=== PATIENT | male | born 1985 | race Caucasian/White ===

== ENCOUNTER 2019-12-05 02:12 | Emergency (ER) | payer OTHER ==
--- NOTE | 2019-12-05 03:05 | ER Document Report ---
ED General - HPI Associated symptoms: Other - See HPI Exacerbated by: Other - Personal stressors Relieved by: Denies <ZOHRA HEBERT IV - Last Filed: 12/05/19 05:25> <MAITE MAX - Last Filed: 12/05/19 14:43> <LILIBETHMARGIE Cayden - Last Filed: 12/05/19 15:00> - General Chief Complaint: Psych Problem Stated Complaint: IVC Time Seen by Provider: 12/05/19 02:22 Primary Care Provider: [facility] [Outside] - Follow up as needed [facility] [Outside] - Follow up as needed [facility] - Follow up as needed - HPI Context: This is a 34-year-old male with a history of depression and anxiety who presents to the emergency department via rescue for evaluation of suicidal ideation. Patient states that he has had thoughts of suicidal ideation for the past 2 days. Patient states he does not have a plan in mind and he does not have access to firearms. Patient states that he is under a lot of emotional stress right now; patient is going through divorce, has been unable to see his children and is technically homeless at this time. Patient states he is living out of a 9 x 14 and closed [facility] behind trailer. Patient states he is on the following medications: Bupropion 150 mg p.o. every morning, vitamin D3 (unknown quantity) every morning, Zoloft 100 mg nightly and doxepin 10 mg nightly. Patient states that he has been prescribed melatonin 5 mg before but does not take it because it gives him nightmares. Patient is also complaining of a lot of anxiety lately and a tendency towards anxiety attacks. Patient states he had to pull off the road the other day because his legs and hands were trembling so much. Patient states he did not call EMS and does not know who did. Patient denies fever, chills, shortness of breath, cough, chest pain, loss of sense of taste or loss of sense of smell, prior COVID 19 infection, known exposure to COVID positive persons or persons under investigation for COVID. Patient denies visual or auditory hallucinations. (ZOHRA HEBERT IV) Past Medical History - General Information source: Patient - Social History Smoking Status: Never Smoker Chew tobacco use (# tins/day): No Frequency of alcohol use: None Drug Abuse: Marijuana Lives with: Other - Homeless Family History: Reviewed & Not Pertinent Patient has suicidal ideation: No Patient has homicidal ideation: No Psychiatric Medical History: Reports: Hx Anxiety, Hx Dementia <ZOHRA HEBERT IV - Last Filed: 12/05/19 05:25> Review of Systems - Review of Systems Constitutional: No symptoms reported EENT: No symptoms reported Cardiovascular: No symptoms reported Respiratory: No symptoms reported Gastrointestinal: No symptoms reported Genitourinary: No symptoms reported Male Genitourinary: No symptoms reported Musculoskeletal: No symptoms reported Skin: No symptoms reported Hematologic/Lymphatic: No symptoms reported Neurological/Psychological: Depression, Anxiety, Suicidal ideation -: Yes All other systems reviewed and negative <ZOHRA HEBERT IV - Last Filed: 12/05/19 05:25> Physical Exam <ZOHRA HEBERT IV - Last Filed: 12/05/19 05:25> - Vital signs Vitals: Temp Pulse Resp BP Pulse Ox 97.9 F 75 14 121/73 99 12/05/19 02:13 12/05/19 02:13 12/05/19 02:13 12/05/19 02:13 12/05/19 02:13 - Notes Notes: CONSTITUTIONAL [Vital signs reviewed, Patient appears comfortable, Alert and oriented X 3, Normal stature.] HEAD [Atraumatic, Normocephalic.] EYES [Eyes are normal to inspection, No discharge from eyes, Extraocular muscles intact, Sclera are normal, Conjunctiva are normal.] ENT No rhinorrhea, Mouth normal to inspection.] NECK [Normal ROM, No jugular venous distention, No meningeal signs] RESPIRATORY CHEST [Chest is nontender, Breath sounds normal, No respiratory distress.] CARDIOVASCULAR [RRR, No murmurs, Normal S1 S2, No rub, No gallop.] ABDOMEN [Abdomen is nontender, No pulsatile masses, No other masses, Bowel sounds normal, No distension, No peritoneal signs, No hernias.] BACK [There is no CVA Tenderness, There is no tenderness to palpation, Normal inspection.] UPPER EXTREMITY [Inspection normal, No cyanosis, No clubbing, No edema, 2+ radial pulses.] LOWER EXTREMITY [Inspection normal, No cyanosis, No clubbing, No edema, No calf tenderness, 2+ femoral pulses.] NEURO [No focal motor deficits, No focal sensory deficits, Speech normal.] SKIN [Skin is warm, Skin is dry, Skin is normal color.] PSYCHIATRIC [Depressed affect, normal speech. ] (ZOHRA HEBERT IV) Course - Laboratory Result Diagrams: 12/05/19 02:21 12/05/19 02:21 <ZOHRA HEBERT IV - Last Filed: 12/05/19 05:25> - Laboratory Result Diagrams: 12/05/19 02:21 12/05/19 02:21 <MAITE MAX - Last Filed: 12/05/19 14:43> - Laboratory Result Diagrams: 12/05/19 02:21 12/05/19 02:21 <MARGIE MCELROY - Last Filed: 12/05/19 15:00> - Re-evaluation Re-evalutation: 12/05/19 05:25 Patient is medically cleared at this time (ZOHRA HEBERT IV) - Vital Signs Vital signs: Temp Pulse Resp BP Pulse Ox 98.0 F 65 14 110/59 L 100 12/05/19 11:11 12/05/19 11:11 12/05/19 05:53 12/05/19 11:11 12/05/19 11:11 - Laboratory Laboratory results interpreted by me: 12/05/19 12/05/19 02:21 03:47 BUN 26 H Creatinine 1.28 H Urine Urobilinogen 2.0 H Salicylates < 1.0 L Acetaminophen < 10 L - EKG Interpretation by Me Additional EKG results interpreted by me: 12/05/19 03:45 EKG obtained on 12/05/2019 at 0218 hrs. was interpreted by this MD. Findings: Normal sinus rhythm, rate 72, normal axis, UT intervals appears within normal limits, P waves proceed QRS complexes, QRS complex appears narrow, QTC is 416, there are no obvious patterns of ST segment elevation, depression or reciprocal changes seen to suggest acute myocardial ischemia or infarction. Impression: Normal sinus rhythm with nonspecific ST segments (ZOHRA HEBERT IV) Discharge <ZOHRA HEBERT IV - Last Filed: 12/05/19 05:25> <MAITE MAX - Last Filed: 12/05/19 14:43> <MARGIE MCELROY - Last Filed: 12/05/19 15:00> - Discharge Clinical Impression: Suicidal ideation, Marijuana use, Marital conflict involving divorce, Depression, Anxiety Condition: Stable Disposition: HOME, SELF-CARE Additional Instructions: You have been evaluated by both medical and behavioral health teams for suicidal ideation, depression, anxiety, cannabis use, and marital conflict involving divorce. You have been deemed appropriate for discharge. While in the emergency department you received the following services/or had access to: Medical screening and assessment, nursing services, dietary services, pharmacological services, one-on-one counseling and/or psychotherapy, environmental services, and continuous observation by a patient safety compliance specialist. You should continue your home medications of Wellbutrin, Zoloft, Doxepin, Melatonin and Vitamin D3. These are the medications your [facility] prescribed you. Just continue whatever medications they are prescribing. You are recommended to refrain from cannabis use as it can increase depression and anxiety, as well as interfere with medication effectiveness. DEPRESSION: (situational factors such as marital conflict can increase this and other mental health symptoms) Your evaluation reveals that you have mental depression. While symptoms may be vague, they often include disturbance of sleep, fatigue, loss of appetite, and general loss of interest in life. While depression may be a side effect of drugs, or a reaction to a major change in your life, many cases have no known cause. If depression is acute, and related to a major loss in your life, you can expect it to clear completely with time. If you have been depressed a long time, are prone to repeated bouts of depression or low mood, or have been thinking of suicide, get help. Depression can be treated with anti-depressant medication and counselling. Long-term depression will often take a few weeks to clear, even with appropriate medication. Follow-up care is important. Anxiety: (situational factors such as marital conflict can increase this and other mental health symptoms) The physician feels that some of your health problems are being caused by anxiety. Anxiety affects your health in many ways. Anxiety alone can cause palpitations, sweats, chest pains, abdominal pains, shortness of breath, and headaches. It contributes to ulcer disease, high blood pressure, irritable bowel syndrome, and has been shown to cause flare-ups of many other diseases. Anxiety is not a simple disorder to treat. If the anxiety is due to recent life stresses, you may simply need time to "work through" the changes. If the anxiety is due to an underlying unhappiness with yourself or due to psychiatric disturbance, professional help will be needed. Your physician can refer you for further help if needed. Anti-anxiety medication is occasionally given if the stress is acute or if you are having trouble sleeping. Chronic or frequent use of these medications is not a good idea because the body becomes reliant on it, preventing you from dealing with life's normal stresses. SUICIDAL IDEATION: Suicidal ideation is a common medical term for thoughts about suicide, which may be as detailed as a formulated plan, without the suicidal act itself. Although most people who undergo suicidal ideation do not commit suicide, some go on to make suicide attempts. The range of suicidal ideation varies greatly from fleeting to detailed planning, role playing, and unsuccessful attempts. While thoughts about suicide are common, most people do not carry out serious actions to commit suicide. Based upon your evaluation and discussion with you, we do not believe you are currently at risk to act upon your thoughts of suicide. You have agreed to return to the Emergency Department, at any time, if you feel inclined to act upon your suicidal thoughts. Please follow-up with your primary care regarding your creatinine which is a little elevated, this may be due to dehydration or drug use. Please follow-up within the next 24 to 48 hours DISCHARGE: You are encouraged to allow your parents who just flew in from [place] to be a natural support. They stated the plan is for you to go back to [place] with them and that is felt to be a good option right now since you denied any support system locally. You should continue with [facility] for your mental health needs, whether that is in [place] where you are currently linked or in [place]. You have been provided both local mobile crisis numbers and the [facility] Crisis Hotline Number for immediate support while still local. If you experience worsening or a significant change in your symptoms notify your physician immediately, utilize crisis numbers or return to the Emergency Department at any time for re-evaluation. Referrals: [facility] [Outside] - Follow up as needed [facility] [Outside] - [facility] up as needed [facility] - Follow up as needed MARQUISE ALVAREZ, [NO LOCAL MD] - Follow up as needed
[2019-12-05 03:23] LABS: ABSOLUTE BASOPHILS # (AUTO) 0.1 10^3/uL (0.0-0.2); ABSOLUTE EOSINOPHILS # (AUTO) 0.2 10^3/uL (0.0-0.6); ABSOLUTE LYMPHOCYTES (AUTO) 1.8 10^3/uL (0.5-4.7); ABSOLUTE MONOCYTES (AUTO) 0.5 10^3/uL (0.1-1.4); ABSOLUTE NEUT (AUTO) 3.7 10^3/uL (1.7-8.2); ALBUMIN 4.9 g/dL (3.5-5.0); ALKALINE PHOSPHATASE 83 U/L (38-126); ANION GAP 12 (5-19); ASPARTATE AMINO TRANSFERASE 23 U/L (17-59); BILIRUBIN,DIRECT 0.3 mg/dL (0.0-0.4); BILIRUBIN,TOTAL 0.5 mg/dL (0.2-1.3); BLOOD UREA NITROGEN 26 mg/dL (7-20); CALCIUM 9.8 mg/dL (8.4-10.2); CARBON DIOXIDE 28 mmol/L (22-30); CHLORIDE 103 mmol/L (98-107); EOSINOPHILS % (AUTO) 2.8 % (0-6); GLUCOSE 99 mg/dL (75-110); HEMATOCRIT 46.6 % (37.9-51.0); HEMOGLOBIN 16.6 g/dL (13.5-17.0); LYMPHOCYTES % (AUTO) 28.5 % (13-45); MEAN CORPUSCULAR HEMOGLOBIN 30.6 pg (27.0-33.4); MEAN CORPUSCULAR HGB CONC 35.6 g/dL (32.0-36.0); MEAN CORPUSCULAR VOLUME 86 fl (80-97); MONOCYTES % (AUTO) 7.8 % (3-13); PLATELET COUNT 232 10^3/uL (150-450); RED BLOOD COUNT 5.42 10^6/uL (4.35-5.55); RED CELL DISTRIBUTION WIDTH 12.9 % (11.5-14.0); SEGMENTED NEUTROPHILS % (AUTO) 59.9 % (42-78); TOTAL CELLS COUNTED % (AUTO) 100 %; TOTAL PROTEIN 7.5 g/dL (6.3-8.2); WHITE BLOOD COUNT 6.2 10^3/uL (4.0-10.5)
[2019-12-05 03:42] LABS: ACETAMINOPHEN < 10 ug/mL (10-30); ALCOHOL < 10 mg/dL (NONE DETECTED); SALICYLATE < 1.0 mg/dL (2.0-20.0)
[2019-12-05 04:16] LABS: APPEARANCE,URINE CLEAR; BILIRUBIN,URINE NEGATIVE (NEGATIVE); COLOR,URINE YELLOW; GLUCOSE, URINE NEGATIVE (NEGATIVE); KETONES,URINE NEGATIVE (NEGATIVE); LEUKOCYTE ESTERASE,URINE NEGATIVE (NEGATIVE); NITRITE,URINE NEGATIVE (NEGATIVE); PROTEIN,URINE NEGATIVE (NEGATIVE); URINE SPECIFIC GRAVITY 1.025
[2019-12-05 04:30] LABS: URINE AMPHETAMINES SCREEN NEGATIVE; URINE BARBITURATES SCREEN NEGATIVE; URINE BENZODIAZEPINES SCREEN NEGATIVE; URINE COCAINE SCREEN NEGATIVE; URINE METHADONE SCREEN NEGATIVE; URINE PHENCYCLIDINE SCREEN NEGATIVE
[2019-12-05 04:32] LABS: URINE MARIJUANA (THC) SCREEN UNCONFIRMED POSITIVE
[2019-12-05] MEDS ORDERED: CHOLECALCIFEROL (D3) 400 UNIT TABLET PO SCH (08:00)
[2019-12-05] MEDS ORDERED: BUPROPION HCL 75 MG TABLET PO SCH (08:00)
--- NOTE | 2019-12-05 10:08 | EKG REPORT ---
SEVERITY:- NORMAL ECG - SINUS RHYTHM ST ELEV, PROBABLE NORMAL EARLY REPOL PATTERN : Confirmed by: Mayuri Norton MD 05-Dec-2019 10:06:46
--- NOTE | 2019-12-05 15:07 | ER Document Report ---
Doctor's Note Notes: 12/05/19 15:05 Patient's vital signs and previous labs, diagnostic images reviewed. Reviewed mental health notes, nurse's notes and previous providers notes. VSS. Pt is in no distress at this time. Denies any SI or HI. discussed Cr of 1.28, discussed following up with pcp for recheck creatinine General: A&Ox3. Answers questions appropriately. Heart: RRR Lungs: CTAB Psych: Flat affect A/P: Continue monitoring and rec's per MH. Normal diet. discussed will likely discharge home. 12/05/19 15:07
[2019-12-05 15:44] VITALS: BP 120/63
[2019-12-05] MEDS ORDERED: DOXEPIN HCL 10 MG CAPSULE PO SCH (22:00)
[2019-12-05] MEDS ORDERED: SERTRALINE HCL 50 MG TABLET PO SCH (22:00)
--- NOTE | 2019-12-09 09:53 | PSYCHOLOGICAL NOTE ---
Psych Note - Psych Note Date seen by psych provider: 12/05/19 Time seen by psych provider: 14:23 - Evaluation with patient from [phone]. Spoke to mother on phone at [phone] and then in person. Psych Note: Patient is a 34 year old male who presented to the Emergency Department human resources operations specialist hours via EMS after he was found in his camper on [address] and reported suicidal ideation for the past 2 days, no plan, no access to firearms, with history of anxiety and depression, and current stress surrounding Divorce where soon to be ex has a protective order so patient unable to be at house or see children and why he is living in [facility]. Patient was put on a 24 Hour P etition for Evaluation. Patient identified he was at the hospital in [place]. He stated he remembered getting picked up by the operator prefinish and coming here. He stated he had pulled over for the night in his camper and admitted it was just before [place]. Patient admitted to marijuana use and commented "it helps calm down my anxiety." He reported being prescribed Vitmain D, Buproprion, Maloxicam, Zoloft, Melatonin and [facility]ep[facility] [place]. He reported he [facility] at the [facility] [place] and mentioned [facility] as therapist and Dr. Polanco as psychiatrist. Patient stated he has appointment with psychiatrist 12/11/2019. He acknowledged he called the [facility], let them know where he was at and what was going on in his mind. He noted he was in a bad state of mine, was in a low spot once and got close to more than just having thoughts of suicide, he had never thought it to that level before, and the other night he was having thoughts with no intention of going forth with any thing. He admitted "I was trying to teach my a lesson, she needs to drop the protection order, it's why I am homeless, but I regret putting my family/parents through this." Patient acknowledged he had been home in [place] on vacation for a couple months, got back into town 11/17/2019, they made a mutual decision to divorce, he came to pack up some things, "a situation occurred where pressed assault charges on him, and he has been homeless since." He reported having a couple bad anxiety attacks since. He denied current suicidal ideation and said he would be honest if he had any thoughts. He stated he doesn't have anybody here and reported his parents are flying in from [place] today. He denied past suicide attempts. He denied previous mental health hospitalizations. He reported he has one firearm that is locked away in his storage unit. He further noted "it is locked in a box, then locked in a safe, and then locked in the storage unit." He admitted he has not had much sleep or rest and did get some in hospital. Patient was alert and oriented to self, person, place, time and situation. Mood was euthymic with congruent affect. He denied current suicidal and homicidal ideation, admitted to having thoughts a couple days ago, no plan or intent, and noted the only firearm he has has 3 locks before he could get to it which is in his storage unit. Patient did not appear to be responding to internal stimuli as evidenced by fair eye contact, answering questions appropriately when addressed, carrying on dialogue conversation and being engaged in evaluation. Thought processes were linear and organized. Conversational speech was within normal limits for rate, tone and prosody. Intellectual abilities are estimated to be average. Insight, judgment and impulse control were fair as evidenced by given consent to speak with mother and include parents in plan of care. Called mother Chirag ([phone]) at [phone]. She stated they just walked in to the hospital lobby. She confirmed they just flew in from [place] and the plan is to take patient back with them. She also confirmed patient going through a "bad divorce." She denied patient having suicidal thoughts or attempts previously. Clinical Presentation: Marital Distress with Divorce occurring- Situational stress Passive Suicidal Ideation a couple days ago but patient admitted taking it father to try to teach a lesson Cannabis Use Disorder History of Depression and Anxiety Impression/Plan: Patient is cleared from acute psychiatric services. Recommendation to RESCIND 24 Hour Petition for Evaluation. Patient denied current suicidal and homicidal ideation, admitted to passive thoughts, admitted to having one firearm that has 3 locks before he could get to it and the last lock being in a storage unit. No observed psychosis. Patient discussed and minimally processed divorce occurring and protective order put in place which has put him homeless living in [facility]. He admitted to having no supports locally, parents flying in from [place] today, and provided contact information so coordinate with them and include in plan of care. He identified he [facility] the [facility] [place] with upcoming psychiatry appointment 12/11/2019. Parents arrived to hospital and noted plan is to take patient back to [place], which patient was on board with, in the next 2-3 days. Provided patient and mother (she was at bedside just before discharge) with the outpatient mental health resource sheet which highlighted both local mobile cri sis numbers and documented the [facility]. Noted patient should have psychiatric and therapy follow up with the [facility] as soon as possible and inform them of transitioning back to [place] so services can be transferred. Patient discharged to parents. Consulted with Dr. Llamas regarding the management and care of patient. ED Physician in agreement with recommendations.
== END 2019-12-05 15:40 | disposition home or self-care (01) ==
LOC: ER 02:12
DX: F32.9 Major depressive disorder, single episode, unspecified (principal); F41.9 Anxiety disorder, unspecified; R45.851 Suicidal ideations; F12.10 Cannabis abuse, uncomplicated; Z63.5 Disruption of family by separation and divorce; Z59.0 Homelessness; Z79.899 Other long term (current) drug therapy
CPT/HCPCS: 93005; 99285; 36415; 80307 ×4; 85025; 80053; 81001; 93010; J3490